=== PATIENT | female | born 1970 | race Caucasian/White ===

== ENCOUNTER 2018-07-16 12:03 | Emergency (ER) | payer BC, MEDICAID, OTHER, SELFPAY ==
[~2018-07-16] VITALS: Ht 162.6 cm; Wt 67.8 kg
[2018-07-16] MEDS ORDERED: LIDOCAINE-MPF 1%, 2ML ONE ×2 (13:16)
[2018-07-16] MEDS ORDERED: HYDROcodone/APAP 5/325 TABLET ONE (13:20)
[2018-07-16] MEDS ORDERED: BUPIVACAINE 0.25% ONE (13:20)
[2018-07-16] MEDS ORDERED: BUPIVACAINE/PF-EPI 0.25% 1:200K SQ ONE (13:30)
[2018-07-16] MEDS ORDERED: HYDROcodone/APAP 5/325 TABLET PO ONE (13:30)
[2018-07-16] MEDS ORDERED: LIDOCAINE-MPF 1%, 5ML INFIL ONE (13:30)
[2018-07-16] MEDS ORDERED: LIDOCAINE-MPF 1%, 5ML ONE (14:06)
[2018-07-16 14:41] VITALS: BP 138/79
== END 2018-07-16 14:44 | disposition home or self-care (01) ==
LOC: ED 14:38
DX: S63.621A Sprain of interphalangeal joint of right thumb, initial encounter (principal); L03.011 Cellulitis of right finger; X50.1XXA Overexertion from prolonged static or awkward postures, initial encounter; Y93.89 Activity, other specified; Y92.009 Unspecified place in unspecified non-institutional (private) residence as the place of occurrence of the external cause; Y99.8 Other external cause status
CPT/HCPCS: 11730; 96372; 99283

== ENCOUNTER 2018-07-18 09:50 | Emergency (ER) | payer BC ==
[~2018-07-18] VITALS: Ht 165.1 cm; Wt 68.5 kg
[2018-07-18 09:51] VITALS: BP 131/80
== END 2018-07-18 10:48 | disposition home or self-care (01) ==
LOC: ED 10:01
DX: L03.011 Cellulitis of right finger (principal)
CPT/HCPCS: 99281

== ENCOUNTER 2021-02-11 13:35 | Emergency (ER) | payer BC ==
[~2021-02-11] VITALS: Ht 162.6 cm; Wt 61.7 kg
[2021-02-11 14:27] LABS: BASOPHILS % (AUTO) 1 % (0-1); EOSINOPHILS % (AUTO) 0 % (1-7); LYMPHOCYTES % (AUTO) 15 % (22-44); MEAN CORPUSCULAR HEMOGLOBIN 31.1 pg (27.0-34.8); MEAN CORPUSCULAR HGB CONC 34.7 g/dL (32.4-35.8); MONOCYTES % (AUTO) 6 % (2-9); NEUTROPHILS % (AUTO) 78 % (42-75); PLATELET COUNT 293 x10^3/uL (130-400); RED BLOOD COUNT 4.74 x10^6/uL (3.82-5.3); RED CELL DISTRIBUTION WIDTH 13.6 % (9.6-15.2)
[2021-02-11] MEDS ORDERED: ONDANSETRON 2MG/ML, 2ML IVPush ONE (14:30)
[2021-02-11] MEDS ORDERED: SODIUM CHLORIDE 0.9% 1,000ML IVBOLUS ONE (14:30)
[2021-02-11 14:33] LABS: ALBUMIN 4.3 g/dL (3.4-5.0); CALCIUM 8.8 mg/dL (8.5-10.1); CREATININE 0.71 mg/dL (0.55-1.02)
[2021-02-11 14:41] LABS: ANION GAP 6 mmol/L (5-15); CHLORIDE 104 mmol/L (98-107)
--- NOTE | 2021-02-11 15:55 | NUR ---
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
[2021-02-11] MEDS ORDERED: MORPHINE SULFATE 4 MG/ML, 1ML ONE ×2 (15:58→16:41)
[2021-02-11] MEDS ORDERED: ONDANSETRON 2MG/ML, 2ML ONE (15:58)
[2021-02-11] MEDS: MORPHINE SULFATE 4 MG/ML, 1ML IVPush PRN ×2 (16:06→16:45)
--- NOTE | 2021-02-11 16:13 | NUR ---
PIV PLACED. MEDS ADMIN PER OCT. IVF RUNNING. PT CONNECTED TO OXYGEN FOR SAFETY. PT AWARE TO BE NPO. CALL LIGHT IN REACH. SPOUSE AT BEDSIDE.
[2021-02-11 16:27] LABS: MICROSCOPIC NOT IND
--- NOTE | 2021-02-11 16:34 | NUR ---
ALL RESULTS ARE BACK AT THIS TIME. CHART UP FOR RECHECK.
--- NOTE | 2021-02-11 16:46 | NUR ---
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 PT C/O 03/29 PAIN.
--- NOTE | 2021-02-11 17:17 | NUR ---
US AT BEDSIDE. FEMALE [employer] MECH[employer]IC AT BEDSIDE LAURIE.
[2021-02-11 18:02] VITALS: BP 130/95
--- NOTE | 2021-02-11 18:03 | NUR ---
ALL RESULTS ARE BACK AT THIS TIME. CHART UP FOR RECHECK.
--- NOTE | 2021-02-11 18:09 | NUR ---
ANDRE TO CONSULT WITH PHARMACY INTERN.
--- NOTE | 2021-02-11 18:34 | NUR ---
ERMD AT BEDSIDE TO UPDATE PT ON POC.
[2021-02-11] MEDS ORDERED: PROCHLORPERAZINE 5 MG/ML, 2ML ONE (18:43)
[2021-02-11] MEDS ORDERED: KETOROLAC 30 MG/1 ML ONE (18:44)
--- NOTE | 2021-02-11 18:52 | NUR ---
TASK RN: PT MEDICATED PER EMAR. RESP EVEN AND UNLABORED, MARIA ISABEL.
[2021-02-11] MEDS ORDERED: MORPHINE SULFATE 4 MG/ML, 1ML IVPush ONE (19:00)
[2021-02-11] MEDS ORDERED: KETOROLAC 30 MG/1 ML IVPush ONE (19:00)
[2021-02-11] MEDS ORDERED: PROCHLORPERAZINE 5 MG/ML, 2ML IVPush ONE (19:00)
== END 2021-02-11 19:18 | disposition home or self-care (01) ==
LOC: ED 19:12
DX: N83.292 Other ovarian cyst, left side (principal); R10.2 Pelvic and perineal pain; R11.10 Vomiting, unspecified; J45.909 Unspecified asthma, uncomplicated; F17.210 Nicotine dependence, cigarettes, uncomplicated; Z90.710 Acquired absence of both cervix and uterus
CPT/HCPCS: 36415; 76830; 80048; 81003; 82040; 85025; 96361; 96374; 96375; 96376; 99284; J0780; J1885; J2270; J2405; J7030